=== PATIENT | male | born 1970 | race Caucasian/White ===

== ENCOUNTER 2019-03-21 12:38 | Inpatient (IN) | payer OTHER ==
[2019-03-21 16:40] VITALS: BMI 22.8
--- NOTE | 2019-03-21 17:15 | HP ---
COWS - Scale Resting Pulse: 1= [place] 81-100 Sweatin= Chills/Flushing Restless Observation: 3= Extraneous Movement Pupil Size: 0= Normal to Room Light Bone or Joint Aches: 1= Mild Discomfort Runny Nose/ Eye Tearin= Runny Nose/Eyes GI Upset > 30mins: 0= None Tremor Observation: 0= None Yawning Observation: 0= None Anxiety or Irritability: 4=Extreme Anxiety Goose Flesh Skin: 0=Smooth Skin COWS Score: 12 CIWA Score - Admission Criteria [facility]ASAS Guidelines: Admission for Medically Managed Detox: Requires at least one of the followin. CIWA greater than 12 2. Seizures within the past 24 hours 3. Delirium tremens within the past 24 hours 4. Hallucinations within the past 24 hours 5. Acute intervention needed for co occurring medical disorder 6. Acute intervention needed for co occurring psychiatric disorder 7. Severe withdrawal that cannot be handled at a lower level of care (continued vomiting, continued diarrhea, abnormal vital signs) requiring intravenous medication and/or fluids 8. Admission ROS [facility] Allergies/Adverse Reactions: Allergies Allergy/AdvReac Type Severity Reaction Status Date / Time No Known Allergies Allergy Verified 03/21/19 18:31 History of Present Illness: pt here requesting detox from opiate use , states went to [facility] today and was referred to this facility as he was there for detox 10 day prior .Pt reports relapse after d/c , current daily use 5-8 bags ivdu in [place] UE , needles from pharmacy , + sharing , + re-using , + abscess left arm , latest use this morning, current symptoms as above . OD " a lo t " most recently " I don't know " , has naracn at home and knows how to use it . denies MMTP cocaine : 100$/day via inhalation benzo - xanax 4 mg x 2 x/week " for a while " tobacco : 1 ppd etoh - denies pmhx : depression, anxiety , + suicide attempt a few months ago OD , denies current SI / HI . SHx : lives w/ family : brother who uses heroin , father not using illicits. Denies legal issues This report was requested by: Brisa Grover | Reference #: [id number] Others' Prescriptions Patient Name: Dylan Veloz Date: 1970 Address: [address] [place] [id number] [address] Sex: Male Rx Written Rx Dispensed Drug Quantity Days Supply Prescriber Name 03/04/2019 03/04/2019 alprazolam 2 mg tablet 90 30 Anthony Haque J, MD 03/04/2019 03/04/2019 zolpidem tartrate 10 mg tablet 30 30 Anthony Haque J, MD 02/03/2019 02/03/2019 alprazolam 2 mg tablet 90 30 Anthony Haque J, MD 02/03/2019 02/03/2019 zolpidem tartrate 10 mg tablet 30 30 Anthony Haque J, MD 12/01/2018 12/02/2018 alprazolam 2 mg tablet 15 5 Anthony Haque J, MD 12/01/2018 12/02/2018 zolpidem tartrate 10 mg tablet 5 5 Anthony Haque J, MD 11/04/2018 11/05/2018 alprazolam 2 mg tablet 90 30 Anthony Haque J, MD 11/04/2018 11/05/2018 zolpidem tartrate 10 mg tablet 30 30 Anthony Haque J, MD 10/11/2018 10/11/2018 zolpidem tartrate 10 mg tablet 30 30 Anthony Haque MD 10/11/2018 10/11/2018 alprazolam 2 mg tablet 90 30 Anthony Haque MD 09/17/2018 09/17/2018 acetaminophen-cod #3 tablet 20 5 Luke Rivera DDBrenda 05/16/2018 05/18/2018 alprazolam 2 mg tablet 90 30 Anthony Haque MD 03/18/2018 04/16/2018 alprazolam 2 mg tablet 90 30 Anthony Haque MD Exam Limitations: Clinical Condition - Ebola screening Have you traveled outside of the country in the last 21 days: No Have you had contact with anyone from an Ebola affected area: No - Review of Systems Constitutional: Loss of Appetite EENT: reports: No Symptoms Reported Respiratory: reports: No Symptoms reported Cardiac: reports: No Symptoms Reported GI: reports: No Symptoms Reported : reports: No Symptoms Reported Musculoskeletal: reports: No Symptoms Reported Integumentary: reports: See HPI Neuro: reports: No Symptoms reported Endocrine: reports: No Symptoms Reported Psychiatric: reports: Orientated x3, Anxious Patient History - Smoking Cessation Smoking history: Current every day smoker Have you smoked in the past 12 months: Yes Hx Chewing Tobacco Use: No Initiated information on smoking cessation: Yes 'Breaking Loose' booklet given: 03/21/19 - Substances abused Alprazolam (Xanax) Substance route: Oral Frequency: Daily Amount used: 2mg Age of first use: 18 Date of last use: 03/19/19 Heroin Substance route: Injection Frequency: Daily Amount used: 5-8 bags Age of first use: 18 Date of last use: 03/21/19 Admission Physical Exam BHS - Vital Signs Vital Signs: Vital Signs - 24 hr 03/21/19 16:37 Temperature 100.0 F H Pulse Rate 89 Respiratory 16 Rate Blood Pressure 165/108 H - Physical General Appearance: Yes: Mild Distress, Moderate Distress, Thin, Anxious HEENTM: Yes: EOMI, Hearing grossly Normal, Normocephalic, Normal Voice, Nasal Congestion, Rhinorrhea Respiratory: Yes: Chest Non-Tender, Lungs Clear, Normal Breath Sounds, No Respiratory Distress, No Accessory Muscle Use Neck: Yes: No masses,lesions,Nodules, Trachea in good position Cardiology: Yes: Regular Rhythm, Regular Rate, S1, S2 Abdominal: Yes: Non Tender, Soft Back: Yes: Normal Inspection Musculoskeletal: Yes: Gait Steady Extremities: Yes: Normal Inspection, Normal Range of Motion, Non-Tender Neurological: Yes: Fully Oriented, Alert, Motor Strength 5/5 Integumentary: Yes: Warm, Track Daniels, Other (erythema and edema , with tracking and induration left antecubital and left forearm , right antecubital erythema , track daniels) - Addiitonal Findings: pt sent to [facility] for evaluation of left UE abscess . Report to Dr Floyd - Diagnostic (1) Opioid dependence Current Visit: Yes Status: Acute Qualifiers: Substance use status: in withdrawal Qualified Code(s): F11.23 - Opioid dependence with withdrawal (2) Cocaine dependence Current Visit: Yes Status: Chronic Qualifiers: Substance use status: uncomplicated Qualified Code(s): F14.20 - Cocaine dependence, uncomplicated (3) Sedative hypnotic or anxiolytic dependence Current Visit: Yes Status: Acute (4) Nicotine dependence Current Visit: Yes Status: Chronic Qualifiers: Nicotine product type: cigarettes Breathalyzer - Breathalyzer Breathalyzer: 0 Urine Drug Screen - Test Device Lot number: [id number] Expiration date: 10/25/20 - Control Is test valid?: Yes - Results Drug screen NEGATIVE: No Urine drug screen results: JOSUE-Cocaine, MOP-Opiates Inpatient Rehab Admission - Rehab Decision to Admit Inpatient rehab admission?: No
[2019-03-22] MEDS ORDERED: BISMUTH SUBSALICYLATE 524 MG/30 ML UD PO PRN (01:14)
[2019-03-22] MEDS ORDERED: cloNIDine HCL 0.1 MG TABLET PO PRN (01:14)
[2019-03-22] MEDS ORDERED: MAGNESIUM CITRATE 300 ML BOTTLE PO PRN (01:14)
[2019-03-22] MEDS ORDERED: MAGNESIUM HYDROX 2400MG/30ML ORAL SUSPENSION 30 ML CUP PO PRN (01:14)
[2019-03-22] MEDS ORDERED: MENTHOL/PHENOL 1 EACH UD MM PRN (01:14)
[2019-03-22] MEDS ORDERED: ACETAMINOPHEN 325 MG TABLET (FP) PO PRN (01:14)
[2019-03-22] MEDS ORDERED: MELATONIN 5 MG TABLETS PO PRN (01:14)
[2019-03-22] MEDS ORDERED: METHADONE HCL 10 MG TABLET (FOR DETOX USE ONLY) PO ONE (01:14)
[2019-03-22] MEDS ORDERED: MAG HYDROX/AL HYDROX/SIMETH 30 ML UNIT-DOSE CUP PO PRN (01:14)
[2019-03-22] MEDS ORDERED: METHOCARBAMOL 500 MG TABLET PO PRN (01:14)
[2019-03-22] MEDS ORDERED: QUEtiapine FUMARATE 100 MG TABLET (FP) PO ONE (01:23)
--- NOTE | 2019-03-22 01:29 | PN ---
Brenda Progress Note Note: Patient returned from ED after being referred for abscess in (L) arm. Cynthia Ed report reviewed and will continue on clindamycin x 28 doses. Earlier [facility] PE reviewed. Will admit to detox.
[2019-03-22] MEDS ORDERED: NICOTINE POLACRILEX 2 MG GUM BUC PRN (02:03)
[2019-03-22] MEDS ORDERED: METHADONE HCL 10 MG TABLET ONE (02:04)
[2019-03-22] MEDS ORDERED: METHADONE HCL 5 MG TABLET ONE (02:04)
[2019-03-22] MEDS ORDERED: METHADONE 10 MG, METHADONE 5 MG PO ONE (02:15)
[2019-03-22] MEDS: ACETAMINOPHEN 325 MG TABLET (FP) PO PRN ×2 (05:51→17:37)
[2019-03-22] MEDS ORDERED: CLINDAMYCIN HCL 300 MG CAPSULE PO SCH (06:00)
[2019-03-22] MEDS ORDERED: METHADONE HCL 10 MG TABLET PO ONE (10:00)
[2019-03-22] MEDS: NICOTINE 21 MG/24 HOURS TOPICAL PATCH TD SCH (10:15)
[2019-03-22] MEDS: PRENATAL VITAMINS W/ FOLIC ACID TABLET (FP) PO SCH (10:16)
--- NOTE | 2019-03-22 11:27 | CONSULT ---
[facility] Psychiatric Consult - Data Date of interview: 03/22/19 Admission source: [facility] Identifying data: First admission to [facility] for this 48 y/o male self-referred for detoxification (RICHARD issues : heroin, xanax, cocaine, nicotine) . Interviewed at [address] [place] [address]. Patient is single, no children, domiciled, unemployed and supported on Disability benefits. Substance Abuse History: Discussed with patient. Details in current [facility] report as follows : Smoking history: Current every day smoker. Have you smoked in the past 12 months: Yes. Hx Chewing Tobacco Use: No. Initiated information on smoking cessation: Yes. 'Breaking Loose' booklet given: 03/21/19. - Substances abused. Alprazolam (Xanax). Substance route: Oral. Frequency: Daily. Amount used: 2mg. Age of first use: 18. Date of last use: 03/19/19. * * Heroin. Substance route: Injection. Frequency: Daily. Amount used: 5-8 bags. Age of first use: 18. Date of last use: 03/21/19 Medical History: Hepatitis C. Patient is currently on antibiotics (clindamycin) for infected heroin injectio sites. Psychiatric History: Patient is a hostile and marginally cooperative historian. He admits to a history of multiple psychiatric hospitalizations (onset of psychiatric issues at age 18). Diagnosed with Bipolar Disorder. Mr Veloz reports no contact with psychiatric [employer]PD care providers. " I take serquel 400 mg at bedtime. I have not a psychiatrist for a long time." Patient remains evasive about his antecedent of suicide attempts (overdoses). Physical/Sexual Abuse/Trauma History: Patient declines discussion of this domain. Additional Comment: Urine drug screen results: JOSUE-Cocaine, MOP-Opiates. Noted. Mental Status Exam - Mental Status Exam Alert and Oriented to: Time, Place, Person Cognitive Function: Good Patient Appearance: Well Groomed (covered with tattoos : neck, arms, forearms) Mood: Angry, Hostile, Withdrawn, Irritable Affect: Mood Congruent Patient Behavior: Fatigued, Uncooperative, Guarded Speech Pattern: Clear Voice Loudness: Normal Thought Process: Goal Oriented Thought Disorder: Not Present Hallucinations: Denies Suicidal Ideation: Denies Homicidal Ideation: Denies Insight/Judgement: Poor Sleep: Poorly, Difficulty falling asleep Appetite: Fair Gait/Station: Normal Psychiatric Findings - Problem List ([place] 1, 2,3) (1) Opioid dependence Current Visit: Yes Status: Chronic Qualifiers: Substance use status: in withdrawal Qualified Code(s): F11.23 - Opioid dependence with withdrawal (2) Sedative hypnotic or anxiolytic dependence Current Visit: Yes Status: Chronic (3) Cocaine dependence Current Visit: Yes Status: Chronic Qualifiers: Substance use status: uncomplicated Qualified Code(s): F14.20 - Cocaine dependence, uncomplicated (4) Nicotine dependence Current Visit: Yes Status: Chronic Qualifiers: Nicotine product type: cigarettes (5) Substance induced mood disorder Current Visit: Yes Status: Chronic (6) History of bipolar disorder Current Visit: Yes Status: Chronic (7) Insomnia Current Visit: Yes Status: Chronic - Initial Treatment Plan Initial Treatment Plan: Psychoeducation. Sleep hygiene. Detoxification. [employer] contacted [facility] ([phone]) for verification of medications : nothing on file ; patient does not get refills from that pharmacy. Mr Veloz insists on resuming quetiapine. In view of this patient's questionable reliability as a historian, seroquel is re-started at the dose of 200 mg po hs. Side effects/benefits discussed with patient. Gave verbal consent to Observation.
[2019-03-22] MEDS: CLINDAMYCIN HCL 300 MG CAPSULE PO SCH ×2 (11:29→18:16)
--- NOTE | 2019-03-22 16:37 | PN ---
BHS COWS - Scale Resting Pulse: 1= [place] 81-100 Sweatin= Chills/Flushing Restless Observation: 1= Difficult to Sit Still Pupil Size: 0= Normal to Room Light Bone or Joint Aches: 2= Severe Diffuse Aches Runny Nose/ Eye Tearin= None GI Upset > 30mins: 0= None Tremor Observation of Outstretched Hands: 0= None Yawning Observation: 1= 1-2x During Session Anxiety or Irritability: 2=Irritable/Anxious Goose Flesh Skin: 3=Piloe[place] COWS Score: 11 S Progress Note (SOAP) Subjective: Anxious, Fatigue, Body Aches. Objective: PATIENT A & O X 3, OBSERVED AMBULATING ON DETOX UNIT UNASSISTED. IN NO ACUTE DISTRESS. 03/22/19 16:37 Vital Signs Temperature 97.3 F L 03/22/19 09:44 Pulse Rate 94 H 03/22/19 09:44 Respiratory Rate 18 03/22/19 09:44 Blood Pressure 128/84 03/22/19 09:44 O2 Sat by Pulse Oximetry (%) RESULTS OF DETOX ADMISSION LABS PENDING. Assessment: 03/22/19 16:39 WITHDRAWAL SYMPTOMS. Plan: CONTINUE DETOX.
[2019-03-22] MEDS: QUEtiapine FUMARATE 200 MG TABLET PO SCH (23:16)
[2019-03-22] MEDS: THIAMINE HCL 100 MG TABLET (FP) PO SCH (23:16)
[2019-03-23] MEDS ORDERED: QUEtiapine FUMARATE 200 MG TABLET PO ONE (00:37)
[2019-03-23] MEDS: CLINDAMYCIN HCL 300 MG CAPSULE PO SCH ×5 (00:53→23:04)
[2019-03-23] MEDS ORDERED: METHADONE HCL 10 MG TABLET (FOR DETOX USE ONLY) ONE (09:59)
[2019-03-23] MEDS ORDERED: METHADONE HCL 5 MG TABLET (FOR DETOX USE ONLY) ONE (10:00)
[2019-03-23] MEDS ORDERED: METHADONE (DETOX) 20 MG, METHADONE (DETOX) 5 MG PO ONE (10:00)
[2019-03-23 10:08] LABS: HEMATOCRIT 39.7 % (35.4-49); HEMOGLOBIN 12.5 GM/dL (11.7-16.9); MCHC 31.6 g/dl (32.0-35.9); MEAN CELL VOLUME 76.1 fl (80-96); MEAN PLT VOLUME 8.1 fl (7.5-11.1); PLATELET COUNT 285 K/MM3 (134-434); RBC 5.21 M/mm3 (4.00-5.60); RDW 21.9 % (11.9-15.9); WHITE BLOOD COUNT 7.1 K/mm3 (4.0-10.0)
[2019-03-23 10:13] LABS: ALBUMIN 3.7 g/dl (3.4-5.0); BILIRUBIN,TOTAL 0.3 mg/dL (0.2-1); BLOOD UREA NITROGEN 14.8 mg/dL (7-18); CALCIUM 9.3 mg/dL (8.5-10.1); CREATININE 0.9 mg/dL (0.55-1.3); POTASSIUM 4.4 mmol/L (3.5-5.1); TOT PROT 7.6 g/dl (6.4-8.2)
[2019-03-23] MEDS: PRENATAL VITAMINS W/ FOLIC ACID TABLET (FP) PO SCH (10:33)
[2019-03-23] MEDS: NICOTINE 21 MG/24 HOURS TOPICAL PATCH TD SCH (10:33)
[2019-03-23] MEDS ORDERED: cloNIDine HCL 0.1 MG TABLET PO PRN (10:49)
--- NOTE | 2019-03-23 10:50 | PN ---
BHS COWS - Scale Resting Pulse: 2= [place] 101-120 Sweatin= Chills/Flushing Restless Observation: 0= Sits Still Pupil Size: 0= Normal to Room Light Bone or Joint Aches: 1= Mild Discomfort Runny Nose/ Eye Tearin= Nasal Congestion GI Upset > 30mins: 1= Stomach Cramp Tremor Observation of Outstretched Hands: 2= Slight Tremor Visible Yawning Observation: 1= 1-2x During Session Anxiety or Irritability: 1=Feels Anxious/Irritable Goose Flesh Skin: 0=Smooth Skin COWS Score: 10 BHS Progress Note (SOAP) Subjective: 48 years old male admitted on 03/21/19 for opiate withdrawal sx management treated with methadone detox regimen patient tolerated well at this time left arm abscess treated in ER discharged with clindymicin no adverse reaction noted Objective: 03/23/19 10:47 Vital Signs Temperature 97.9 F 03/23/19 09:11 Pulse Rate 101 H 03/23/19 09:11 Respiratory Rate 18 03/23/19 09:11 Blood Pressure 158/100 03/23/19 09:11 O2 Sat by Pulse Oximetry (%) Laboratory Last Values WBC 7.1 K/mm3 (4.0-10.0) 03/23/19 07:40 RBC 5.21 M/mm3 (4.00-5.60) 03/23/19 07:40 Hgb 12.5 GM/dL (11.7-16.9) 03/23/19 07:40 Hct 39.7 % (35.4-49) 03/23/19 07:40 MCV 76.1 fl (80-96) L 03/23/19 07:40 MCH 24.0 pg (25.7-33.7) L 03/23/19 07:40 MCHC 31.6 g/dl (32.0-35.9) L 03/23/19 07:40 RDW 21.9 % (11.9-15.9) H 03/23/19 07:40 Plt Count 285 K/MM3 (134-434) 03/23/19 07:40 MPV 8.1 fl (7.5-11.1) 03/23/19 07:40 Sodium 139 mmol/L (136-145) 03/23/19 07:40 Potassium 4.4 mmol/L (3.5-5.1) 03/23/19 07:40 Chloride 105 mmol/L (98-107) 03/23/19 07:40 Carbon Dioxide 24 mmol/L (21-32) 03/23/19 07:40 Anion Gap 9 MMOL/L (8-16) 03/23/19 07:40 BUN 14.8 mg/dL (7-18) 03/23/19 07:40 Creatinine 0.9 mg/dL (0.55-1.3) 03/23/19 07:40 Est GFR (CKD-EPI)AfAm 116.65 03/23/19 07:40 Est GFR (CKD-EPI)NonAf 100.64 03/23/19 07:40 Random Glucose 117 mg/dL (74-106) H 03/23/19 07:40 Calcium 9.3 mg/dL (8.5-10.1) 03/23/19 07:40 Total Bilirubin 0.3 mg/dL (0.2-1) 03/23/19 07:40 AST 11 U/L (15-37) L 03/23/19 07:40 ALT 11 U/L (13-61) L 03/23/19 07:40 Alkaline Phosphatase 78 U/L (45-117) 03/23/19 07:40 Total Protein 7.6 g/dl (6.4-8.2) 03/23/19 07:40 Albumin 3.7 g/dl (3.4-5.0) 03/23/19 07:40 lab noted bp elevation clonidine 0.1 mg po q6h prn for bp elevation 03/23/19 10:49 Assessment: 03/23/19 10:49 opiate withdrawal sx discuss medication assisted treatment program Plan: continue methadone detox regimen
[2019-03-23] MEDS: QUEtiapine FUMARATE 200 MG TABLET PO SCH (22:43)
[2019-03-23] MEDS: THIAMINE HCL 100 MG TABLET (FP) PO SCH (22:43)
[2019-03-24] MEDS: CLINDAMYCIN HCL 300 MG CAPSULE PO SCH ×4 (06:11→23:00)
[2019-03-24] MEDS: ACETAMINOPHEN 325 MG TABLET (FP) PO PRN (06:12)
[2019-03-24] MEDS ORDERED: METHADONE HCL 10 MG TABLET (FOR DETOX USE ONLY) PO ONE (10:00)
[2019-03-24] MEDS: PRENATAL VITAMINS W/ FOLIC ACID TABLET (FP) PO SCH (10:28)
[2019-03-24] MEDS: NICOTINE 21 MG/24 HOURS TOPICAL PATCH TD SCH (10:28)
--- NOTE | 2019-03-24 11:40 | PN ---
BHS COWS - Scale Resting Pulse: 0= [place] 80 or Below Sweatin= Chills/Flushing Restless Observation: 0= Sits Still Pupil Size: 1= Pupils >than Normal Bone or Joint Aches: 1= Mild Discomfort Runny Nose/ Eye Tearin= Nasal Congestion GI Upset > 30mins: 1= Stomach Cramp Tremor Observation of Outstretched Hands: 1= Tremor [place], Not Seen Yawning Observation: 1= 1-2x During Session Anxiety or Irritability: 1=Feels Anxious/Irritable Goose Flesh Skin: 0=Smooth Skin COWS Score: 8 BHS Progress Note (SOAP) Subjective: 48 years old male admitted on 03/21/19 for opiate withdrawal sx management treated with methadone detox regimen left arm abscess no discharge no open area noted none tenderness no offensive odor left hand and wrist and elbow and shoulder full range of motion Objective: 03/24/19 11:39 Vital Signs Temperature 96.4 F L 03/24/19 09:23 Pulse Rate 68 03/24/19 09:23 Respiratory Rate 18 03/24/19 09:23 Blood Pressure 131/80 03/24/19 09:23 O2 Sat by Pulse Oximetry (%) Laboratory Last Values WBC 7.1 K/mm3 (4.0-10.0) 03/23/19 07:40 RBC 5.21 M/mm3 (4.00-5.60) 03/23/19 07:40 Hgb 12.5 GM/dL (11.7-16.9) 03/23/19 07:40 Hct 39.7 % (35.4-49) 03/23/19 07:40 MCV 76.1 fl (80-96) L 03/23/19 07:40 MCH 24.0 pg (25.7-33.7) L 03/23/19 07:40 MCHC 31.6 g/dl (32.0-35.9) L 03/23/19 07:40 RDW 21.9 % (11.9-15.9) H 03/23/19 07:40 Plt Count 285 K/MM3 (134-434) 03/23/19 07:40 MPV 8.1 fl (7.5-11.1) 03/23/19 07:40 Sodium 139 mmol/L (136-145) 03/23/19 07:40 Potassium 4.4 mmol/L (3.5-5.1) 03/23/19 07:40 Chloride 105 mmol/L (98-107) 03/23/19 07:40 Carbon Dioxide 24 mmol/L (21-32) 03/23/19 07:40 Anion Gap 9 MMOL/L (8-16) 03/23/19 07:40 BUN 14.8 mg/dL (7-18) 03/23/19 07:40 Creatinine 0.9 mg/dL (0.55-1.3) 03/23/19 07:40 Est GFR (CKD-EPI)AfAm 116.65 03/23/19 07:40 Est GFR (CKD-EPI)NonAf 100.64 03/23/19 07:40 Random Glucose 117 mg/dL (74-106) H 03/23/19 07:40 Calcium 9.3 mg/dL (8.5-10.1) 03/23/19 07:40 Total Bilirubin 0.3 mg/dL (0.2-1) 03/23/19 07:40 AST 11 U/L (15-37) L 03/23/19 07:40 ALT 11 U/L (13-61) L 03/23/19 07:40 Alkaline Phosphatase 78 U/L (45-117) 03/23/19 07:40 Total Protein 7.6 g/dl (6.4-8.2) 03/23/19 07:40 Albumin 3.7 g/dl (3.4-5.0) 03/23/19 07:40 RPR Titer Nonreactive (NONREACTIVE) 03/23/19 07:40 lab noted Assessment: 03/24/19 11:39 opiate withdrawal sx Plan: continue methadone detox regimen
[2019-03-24] MEDS: IBUPROFEN 400 MG TABLET (FP) PO PRN (16:05)
[2019-03-24] MEDS: THIAMINE HCL 100 MG TABLET (FP) PO SCH (22:04)
[2019-03-24] MEDS: clonazePAM 0.5 MG TABLET PO PRN (22:04)
[2019-03-24] MEDS: QUEtiapine FUMARATE 200 MG TABLET PO SCH (22:05)
[2019-03-25] MEDS: CLINDAMYCIN HCL 300 MG CAPSULE PO SCH ×4 (05:48→23:39)
[2019-03-25] MEDS ORDERED: METHADONE HCL 10 MG TABLET (FOR DETOX USE ONLY) ONE (09:01)
[2019-03-25] MEDS ORDERED: METHADONE HCL 5 MG TABLET (FOR DETOX USE ONLY) ONE (09:01)
[2019-03-25] MEDS: IBUPROFEN 400 MG TABLET (FP) PO PRN (09:08)
[2019-03-25] MEDS ORDERED: METHADONE (DETOX) 10 MG, METHADONE (DETOX) 5 MG PO ONE (10:00)
[2019-03-25] MEDS: PRENATAL VITAMINS W/ FOLIC ACID TABLET (FP) PO SCH (10:42)
[2019-03-25] MEDS: NICOTINE 21 MG/24 HOURS TOPICAL PATCH TD SCH (10:43)
--- NOTE | 2019-03-25 12:15 | PN ---
BHS COWS - Scale Resting Pulse: 2= [place] 101-120 Sweatin= No chills or Flushing Restless Observation: 0= Sits Still Pupil Size: 1= Pupils >than Normal Bone or Joint Aches: 1= Mild Discomfort Runny Nose/ Eye Tearin= None GI Upset > 30mins: 0= None Tremor Observation of Outstretched Hands: 1= Tremor [place], Not Seen Yawning Observation: 0= None Anxiety or Irritability: 1=Feels Anxious/Irritable Goose Flesh Skin: 0=Smooth Skin COWS Score: 6 BHS Progress Note (SOAP) Subjective: 48 years old male admitted on 03/21/19 for opiate withdrawal sx management treated with methadone detox regimen mild body ache less tremor sleep better at night Objective: 03/25/19 12:16 Vital Signs Temperature 97 F L 03/25/19 09:17 Pulse Rate 101 H 03/25/19 09:17 Respiratory Rate 18 03/25/19 09:17 Blood Pressure 134/92 03/25/19 09:17 O2 Sat by Pulse Oximetry (%) Laboratory Last Values WBC 7.1 K/mm3 (4.0-10.0) 03/23/19 07:40 RBC 5.21 M/mm3 (4.00-5.60) 03/23/19 07:40 Hgb 12.5 GM/dL (11.7-16.9) 03/23/19 07:40 Hct 39.7 % (35.4-49) 03/23/19 07:40 MCV 76.1 fl (80-96) L 03/23/19 07:40 MCH 24.0 pg (25.7-33.7) L 03/23/19 07:40 MCHC 31.6 g/dl (32.0-35.9) L 03/23/19 07:40 RDW 21.9 % (11.9-15.9) H 03/23/19 07:40 Plt Count 285 K/MM3 (134-434) 03/23/19 07:40 MPV 8.1 fl (7.5-11.1) 03/23/19 07:40 Sodium 139 mmol/L (136-145) 03/23/19 07:40 Potassium 4.4 mmol/L (3.5-5.1) 03/23/19 07:40 Chloride 105 mmol/L (98-107) 03/23/19 07:40 Carbon Dioxide 24 mmol/L (21-32) 03/23/19 07:40 Anion Gap 9 MMOL/L (8-16) 03/23/19 07:40 BUN 14.8 mg/dL (7-18) 03/23/19 07:40 Creatinine 0.9 mg/dL (0.55-1.3) 03/23/19 07:40 Est GFR (CKD-EPI)AfAm 116.65 03/23/19 07:40 Est GFR (CKD-EPI)NonAf 100.64 03/23/19 07:40 Random Glucose 117 mg/dL (74-106) H 03/23/19 07:40 Calcium 9.3 mg/dL (8.5-10.1) 03/23/19 07:40 Total Bilirubin 0.3 mg/dL (0.2-1) 03/23/19 07:40 AST 11 U/L (15-37) L 03/23/19 07:40 ALT 11 U/L (13-61) L 03/23/19 07:40 Alkaline Phosphatase 78 U/L (45-117) 03/23/19 07:40 Total Protein 7.6 g/dl (6.4-8.2) 03/23/19 07:40 Albumin 3.7 g/dl (3.4-5.0) 03/23/19 07:40 RPR Titer Nonreactive (NONREACTIVE) 03/23/19 07:40 lab noted Assessment: 03/25/19 12:16 opiate withdrawal sx Plan: continue methadone detox regimen left arm abscess less swell no redness full range of motion
[2019-03-25 14:39] LABS: PH,URINE 6.5 (5.0-8.0); URINE APPEARANCE CLEAR; URINE BILIRUBIN NEGATIVE (NEGATIVE); URINE COLOR YELLOW; URINE GLUCOSE (UA) NEGATIVE (NEGATIVE); URINE KETONE NEGATIVE (NEGATIVE); URINE LEUK ESTERASE NEGATIVE (NEGATIVE); URINE NITRITE NEGATIVE (NEGATIVE); URINE PROTEIN NEGATIVE (NEGATIVE); URINE UROBILINOGEN 0.2 mg/dL (0.2-1.0)
[2019-03-25] MEDS: QUEtiapine FUMARATE 200 MG TABLET PO SCH (22:12)
[2019-03-25] MEDS: THIAMINE HCL 100 MG TABLET (FP) PO SCH (22:12)
[2019-03-26] MEDS: CLINDAMYCIN HCL 300 MG CAPSULE PO SCH ×4 (07:37→23:10)
[2019-03-26] MEDS: NICOTINE 21 MG/24 HOURS TOPICAL PATCH TD SCH (09:29)
[2019-03-26] MEDS: PRENATAL VITAMINS W/ FOLIC ACID TABLET (FP) PO SCH (09:29)
[2019-03-26] MEDS ORDERED: METHADONE HCL 10 MG TABLET (FOR DETOX USE ONLY) PO ONE (10:00)
--- NOTE | 2019-03-26 11:45 | PN ---
[facility] COWS - Scale Resting Pulse: 2= MS 101-120 Sweatin= Chills/Flushing Restless Observation: 0= Sits Still Pupil Size: 0= Normal to Room Light Bone or Joint Aches: 1= Mild Discomfort Runny Nose/ Eye Tearin= None GI Upset > 30mins: 0= None Tremor Observation of Outstretched Hands: 0= None Yawning Observation: 0= None Anxiety or Irritability: 0= None Goose Flesh Skin: 0=Smooth Skin COWS Score: 4 [facility] Progress Note (SOAP) Subjective: 48 years old male admitted on 03/21/19 for opiate withdrawal sx management treated with methadone detox regimen patient tolerated well discuss medication assisted treatment program [employer] narcan from pharmacy Objective: 03/26/19 11:44 Vital Signs Temperature 96.7 F L 03/26/19 09:14 Pulse Rate 112 H 03/26/19 09:14 Respiratory Rate 18 03/26/19 09:14 Blood Pressure 116/79 03/26/19 09:14 O2 Sat by Pulse Oximetry (%) Laboratory Last Values WBC 7.1 K/mm3 (4.0-10.0) 03/23/19 07:40 RBC 5.21 M/mm3 (4.00-5.60) 03/23/19 07:40 Hgb 12.5 GM/dL (11.7-16.9) 03/23/19 07:40 Hct 39.7 % (35.4-49) 03/23/19 07:40 MCV 76.1 fl (80-96) L 03/23/19 07:40 MCH 24.0 pg (25.7-33.7) L 03/23/19 07:40 MCHC 31.6 g/dl (32.0-35.9) L 03/23/19 07:40 RDW 21.9 % (11.9-15.9) H 03/23/19 07:40 Plt Count 285 K/MM3 (134-434) 03/23/19 07:40 MPV 8.1 fl (7.5-11.1) 03/23/19 07:40 Sodium 139 mmol/L (136-145) 03/23/19 07:40 Potassium 4.4 mmol/L (3.5-5.1) 03/23/19 07:40 Chloride 105 mmol/L (98-107) 03/23/19 07:40 Carbon Dioxide 24 mmol/L (21-32) 03/23/19 07:40 Anion Gap 9 MMOL/L (8-16) 03/23/19 07:40 BUN 14.8 mg/dL (7-18) 03/23/19 07:40 Creatinine 0.9 mg/dL (0.55-1.3) 03/23/19 07:40 Est GFR (CKD-EPI)AfAm 116.65 03/23/19 07:40 Est GFR (CKD-EPI)NonAf 100.64 03/23/19 07:40 Random Glucose 117 mg/dL (74-106) H 03/23/19 07:40 Calcium 9.3 mg/dL (8.5-10.1) 03/23/19 07:40 Total Bilirubin 0.3 mg/dL (0.2-1) 03/23/19 07:40 AST 11 U/L (15-37) L 03/23/19 07:40 ALT 11 U/L (13-61) L 03/23/19 07:40 Alkaline Phosphatase 78 U/L (45-117) 03/23/19 07:40 Total Protein 7.6 g/dl (6.4-8.2) 03/23/19 07:40 Albumin 3.7 g/dl (3.4-5.0) 03/23/19 07:40 Urine Color Yellow 03/25/19 11:30 Urine Appearance Clear 03/25/19 11:30 Urine pH 6.5 (5.0-8.0) 03/25/19 11:30 Ur Specific [place] 1.015 (1.010-1.035) 03/25/19 11:30 Urine Protein Negative (NEGATIVE) 03/25/19 11:30 Urine Glucose (UA) Negative (NEGATIVE) 03/25/19 11:30 Urine Ketones Negative (NEGATIVE) 03/25/19 11:30 Urine Blood Negative (NEGATIVE) 03/25/19 11:30 Urine Nitrite Negative (NEGATIVE) 03/25/19 11:30 Urine Bilirubin Negative (NEGATIVE) 03/25/19 11:30 Urine Urobilinogen 0.2 mg/dL (0.2-1.0) 03/25/19 11:30 Ur Leukocyte Esterase Negative (NEGATIVE) 03/25/19 11:30 RPR Titer Nonreactive (NONREACTIVE) 03/23/19 07:40 lab noted Assessment: 03/26/19 11:44 opiate withdrawal sx Plan: continue methadone detox regimen
[2019-03-26] MEDS: THIAMINE HCL 100 MG TABLET (FP) PO SCH (22:13)
[2019-03-26] MEDS: clonazePAM 0.5 MG TABLET PO PRN (22:13)
[2019-03-26] MEDS: QUEtiapine FUMARATE 200 MG TABLET PO SCH (22:14)
[2019-03-27] MEDS ORDERED: METHADONE HCL 5 MG TABLET (FOR DETOX USE ONLY) PO ONE (06:00)
[2019-03-27] MEDS: CLINDAMYCIN HCL 300 MG CAPSULE PO SCH (06:24)
[2019-03-27 09:22] VITALS: BP 112/71; PULSE 87; TEMP 98.2
[2019-03-27] MEDS: PRENATAL VITAMINS W/ FOLIC ACID TABLET (FP) PO SCH (09:41)
[2019-03-27] MEDS: NICOTINE 21 MG/24 HOURS TOPICAL PATCH TD SCH (09:41)
--- NOTE | 2019-03-27 11:33 | DS ---
[facility] Detox Discharge Summary Admission Date: 03/22/19 Discharge Date: 03/27/19 - History Present History: Opioid Dependence Additional Comments: 48 years old male admitted on 03/21/19 for opiate withdrawal sx management treated with methadone detox regimen patient tolerated well patient is alert oriented x 3 respiratory clear lung bilaterally on auscultation left inner fore arm abscess no swelling no redness no bleeding denies pain full range of motion skin warm dry - Physical Exam Results Vital Signs: Vital Signs Temperature 98.2 F 03/27/19 09:22 Pulse Rate 87 03/27/19 09:22 Respiratory Rate 16 03/27/19 09:22 Blood Pressure 112/71 03/27/19 09:22 O2 Sat by Pulse Oximetry (%) Pertinent Admission Physical Exam Findings: opiate withdrawal sx - Treatment Hospital Course: Detox Protocol Followed, Detoxed Safely, Responded well, Discharged Condition Good, Rehab Referral Accepted Patient has Accepted a [facility] Referral [facility]: [facility] - Medication Discharge Medications: Ambulatory Orders Alprazolam [Alprazolam Xr] 2 mg PO TID 03/21/19 Seroquel 400 mg PO HS 03/21/19 Naloxone HCl [Narcan] 4 mg NS ASDIR PRN #1 spray 03/23/19 Clindamycin [Cleocin -] 300 mg PO Q6HPO #28 capsule 03/27/19 - Diagnosis (1) Nicotine dependence Status: Acute Qualifiers: Nicotine product type: cigarettes Substance use status: in withdrawal Qualified Code(s): F17.213 - Nicotine dependence, cigarettes, with withdrawal (2) Opioid dependence Status: Acute Qualifiers: Substance use status: uncomplicated Qualified Code(s): F11.20 - Opioid dependence, uncomplicated (3) Substance induced mood disorder Status: Suspected - AMA Did Patient Leave Against Medical Advice: No COWS (PN) - Opiate Withdrawal Resting Pulse: 1= TN 81-100 Sweatin= Chills/Flushing Restless Observation: 0= Sits Still Pupil Size: 0= Normal to Room Light Bone or Joint Aches: 0= None Runny Nose/ Eye Tearin= None GI Upset > 30mins: 0= None Tremor Observation of Outstretched Hands: 0= None Yawning Observation: 0= None Anxiety or Irritability: 0= None Goose Flesh Skin: 0=Smooth Skin COWS Score: 2
== END 2019-03-27 10:02 | disposition home or self-care (01) | DRG 897 ==
LOC: YASAS 12:38 → Y3N 03-22 01:19
PROVIDERS: ADMIT Allergy & Immunology; ATTEND Allergy & Immunology
PROC: HZ2ZZZZ Detoxification Services for Substance Abuse Treatment (ICD-10-PCS; principal; 2019-03-22)
DX: F11.23 Opioid dependence with withdrawal (principal); F13.20 Sedative, hypnotic or anxiolytic dependence, uncomplicated; F14.20 Cocaine dependence, uncomplicated; L02.414 Cutaneous abscess of left upper limb; F17.210 Nicotine dependence, cigarettes, uncomplicated; F19.24 Other psychoactive substance dependence with psychoactive substance-induced mood disorder; F31.9 Bipolar disorder, unspecified; G47.00 Insomnia, unspecified
CPT/HCPCS: 36415; 80053; 81003; 85027; 86317; 86593; 86803; J0735

== ENCOUNTER 2019-03-21 18:17 | Emergency (ER) | payer OTHER ==
[2019-03-21 18:52] VITALS: TEMP 98; BMI 23.1
--- NOTE | 2019-03-21 19:32 | PDOC ---
History of Present Illness - General Chief Complaint: Abscess Boil Stated Complaint: LEFT ARM ABSCESS Time Seen by Provider: 03/21/19 19:29 - History of Present Illness Initial Comments: Jhoan Veloz is a 48yo man with a history of polysubstance abuse (IV heroin, nasal cocaine, PO benzos, tobacco) who was sent to the ED from detox for evaluation of a suspected LUE abscess. He reports that he has injected heroin into the site, and the swelling and redness have been present for at least a week. He denies any spreading swelling or redness, fevers/chills, or significant pain at the site. Past History - Past Medical History Allergies/Adverse Reactions: Allergies Allergy/AdvReac Type Severity Reaction Status Date / Time No Known Allergies Allergy Verified 03/21/19 18:31 Home Medications: Ambulatory Orders Alprazolam [Alprazolam Xr] 2 mg PO TID 03/21/19 Clindamycin [Cleocin -] 300 mg PO Q6HPO #28 capsule 03/21/19 Seroquel 400 mg PO HS 03/21/19 COPD: No - Psycho Social/Smoking Cessation Hx Smoking History: Current every day smoker Have you smoked in the past 12 months: Yes Number of Cigarettes Smoked Daily: 20 Information on smoking cessation initiated: No Hx Alcohol Use: No Drug/Substance Use Hx: Yes Review of Systems - Review of Systems Comments:: General: No fevers, no chills, no weight or appetite change, no malaise HEENT: No changes in vision, no changes in hearing, no congestion, no sore throat CV: No chest pain, no palpitations, no LE edema Pulm: No SOB, no cough, no wheezing GI: No nausea or vomiting, no change in bowel habits, no melena : No frequency, no urgency, no dysuria Musc: No back pain, no joint swelling, no recent injury Skin: See HPI Endo: No excessive thirst, no heat/cold intolerance Heme: No unusual bruising or bleeding, no swollen glands Neuro: No syncope, no numbness/tingling, no focal weakness Vasc: No claudication Psych: No recent change in mood, no SI or HI, +anxiety *Physical Exam - Vital Signs Last Vital Signs Temp Pulse Resp BP Pulse Ox 98 F 18 L 20 154/96 99 03/21/19 18:31 03/21/19 18:31 03/21/19 18:31 03/21/19 18:31 03/21/19 18:31 - Physical Exam Comments: General: In no acute distress HEENT: PERRL, EOMI, MMM, voice normal, normal neck ROM Cards: RRR, no murmur appreciated Pulm: Comfortable on room air, clear to auscultation bilaterally Abd: Soft, nontender, nondistended Ext: No LE edema. ROM intact. Strength equal bilaterally Vasc: Extremities WWP. Skin: Track park on BUE. L forearm w/ 3cm area of erythema, induration with 0.7cm scabbed area in center. Nontender, no fluctuance appreciated Neuro: A&Ox3, CN grossly intact, normal speech, motor/sensory grossly intact and symmetric Psych: Appears anxious Medical Decision Making - Medical Decision Making 03/21/19 19:59 Jhoan Veloz is a 48yo man with a history of polysubstance abuse (IV heroin, nasal cocaine, PO benzos, tobacco) who was sent to the ED from detox for evaluation of a suspected LUE abscess. - LUE with area of induration but no fluctuance apparent. Likely infected but does not seem to have any drainable fluid - Will send for soft tissue US - Anxious, slightly HTN, borderline tachycardic. 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 Clonidine and librium for withdrawal - Clindamycin 03/21/19 21:55 - US without fluid collection - Pt to be discharged back to detox, should continue clindamycin Discussed with Dr Ruth Palmer PGY2 Discharge - Discharge Information Problems reviewed: Yes Clinical Impression/Diagnosis: Pain Disposition: TRANSFER ACUTE CARE/OTHER HOSP - Additional Discharge Information Prescriptions: Clindamycin [Cleocin -] 300 mg PO Q6HPO #28 capsule - Follow up/Referral - Patient Discharge Instructions - Post Discharge Activity
[2019-03-21] MEDS ORDERED: cloNIDine HCL 0.1 MG TABLET PO ONE (19:46)
[2019-03-21] MEDS ORDERED: chlordiazePOXIDE HCL 25 MG CAPSULE PO ONE (19:46)
[2019-03-21] MEDS ORDERED: CLINDAMYCIN HCL 150 MG CAPSULE (FP) PO ONE (20:00)
--- NOTE | 2019-03-21 20:19 | PDOC ---
Attending Attestation - Resident Resident Name: Darleen Palmer - ED Attending Attestation I have performed the following: I have examined & evaluated the patient, The case was reviewed & discussed with the resident, I agree w/resident's findings & plan - HPI HPI: 03/21/19 20:02 Pt has abscess/infection of his arm where he shoots up heroin. He was sent from [facility]. Pt has no other complaints, except that he is antsy and he is withdrawing. He has no fever and no chills, and he appears well. - Physicial Exam PE: 03/21/19 20:02 Agreewith resident exam. - Medical Decision Making 03/21/19 20:02 Pt will get sono to r/o abscess/pus colleciton Pt will be treated with clinda; we think he will be stable to return to [facility] 03/21/19 21:55 Sono shows no abscess that requires draininage at this time. Pt has no pain over the area of his arm that has early cellulitis; he is stable to return to [facility].
[2019-03-21] MEDS ORDERED: chlordiazePOXIDE HCL 25 MG CAPSULE ONE (21:07)
[2019-03-21] MEDS ORDERED: cloNIDine HCL 0.1 MG TABLET ONE (21:07)
[2019-03-21] MEDS ORDERED: CLINDAMYCIN HCL 150 MG CAPSULE (FP) ONE (21:08)
[2019-03-22 01:02] VITALS: BP 150/91; PULSE 90
== END 2019-03-22 00:22 | disposition short-term general hospital (02) ==
LOC: JER 18:17
DX: L98.8 Other specified disorders of the skin and subcutaneous tissue (principal); F11.10 Opioid abuse, uncomplicated; F14.10 Cocaine abuse, uncomplicated; F13.10 Sedative, hypnotic or anxiolytic abuse, uncomplicated; F17.210 Nicotine dependence, cigarettes, uncomplicated; M79.602 Pain in left arm
CPT/HCPCS: 76882-TC-RT-FY; 99282-25; J0735